=== PATIENT | female | born 1970 | race American Indian/Alaskan Native ===

== ENCOUNTER 2017-11-20 10:45 | Emergency (ER) | payer SELFPAY ==
[2017-11-20 11:03] VITALS: BP 127/72
--- NOTE | 2017-11-20 11:49 | Emergency Department Report ---
ED Lower Extremity HPI - General Chief Complaint: Pain General Stated Complaint: r knee pain Time Seen by Provider: 11/20/17 11:45 Source: patient Mode of arrival: Ambulatory Limitations: No Limitations - History of Present Illness MD Complaint: knee injury -: Gradual Injury: Knee: Right Type of Injury: unknown Place: home Severity: moderate Improves With: NSAID Worsens With: movement Context: fall, other (but several months before the pain) Treatments Prior to Arrival: NSAIDS - Related Data Previous Rx's Medication Instructions Recorded Last Taken Type Ibuprofen [Motrin] 400 mg PO Q12H PRN #20 tablet 11/20/17 Unknown Rx ED Review of Systems ROS: Stated complaint: VERY BAD/LEG PAIN Other details as noted in HPI Comment: All other systems reviewed and negative Constitutional: no symptoms reported Respiratory: no symptoms reported Endocrine: no symptoms reported Musculoskeletal: other (r knee pain) ED Past Medical Hx - Past Medical History Previous Medical History?: No - Surgical History Past Surgical History?: Yes Additional Surgical History: gallstones 2011 - Family History Family history: no significant - Social History Smoking Status: Current Every Day Smoker Substance Use Type: None - Medications Home Medications: Home Medications Medication Instructions Recorded Confirmed Last Taken Type Ibuprofen [Motrin] 400 mg PO Q12H PRN #20 tablet 11/20/17 Unknown Rx ED Physical Exam - General Limitations: No Limitations General appearance: alert, in no apparent distress - Head Head exam: Present: atraumatic - Eye Eye exam: Present: normal appearance, PERRL - ENT ENT exam: Present: normal exam, normal orophraynx - Neck Neck exam: Present: normal inspection - Respiratory Respiratory exam: Present: normal lung sounds bilaterally - Cardiovascular Cardiovascular Exam: Present: regular rate - GI/Abdominal GI/Abdominal exam: Present: soft - Expanded Lower Extremity Exam Right Knee exam: Present: full ROM (but w pain), swelling (mild), full knee extension (w pain). Absent: tenderness, abrasion, laceration, ecchymosis, deformity, crepidus, dislocation, erythema, effusion, posterior draw sign, pain/laxity with valgus, pain/laxity with varus Lower Leg exam: Absent: tenderness, palpable cord, Zane's sign Ankle exam: Present: normal inspection Neuro vascular tendon exam: Present: no vascular compromise. Absent: abnormal cap refill Gait: Positive: observed and normal - Back Exam Back exam: Present: normal inspection - Neurological Exam Neurological exam: Present: alert, altered, oriented X3 - Psychiatric Psychiatric exam: Present: normal affect, normal mood ED Course Vital Signs 11/20/17 10:58 Temperature 98.0 F Respiratory 18 Rate Blood Pressure 127/72 O2 Sat by Pulse 96 Oximetry - Reevaluation(s) Reevaluation #1: 11/20/17 12:50 exam wo crepitus or any line or point tenderness of knee no effusion no popl cyst no laxity slightly swollen compared to left ambulatory had fallen 1 m prior to start of the pain pain is sharp and feels like something is pulling. no homans no calf swelling plus 2 dp otherwise healthy ED Lower Extremity MDM - Radiology Data Radiology results: report reviewed, image reviewed - Differential Diagnosis knee injury from fall 1 m prior to the pain or arthritis Critical care attestation.: If time is entered above; I have spent that time in minutes in the direct care of this critically ill patient, excluding procedure time. ED Disposition Clinical Impression: Knee pain, Arthritis Disposition: - TO HOME OR SELFCARE Is pt being admited?: No Does the pt Need Aspirin: No Condition: Good Instructions: Arthralgia (ED) Prescriptions: Ibuprofen [Motrin] 400 mg PO Q12H PRN #20 tablet PRN Reason: Pain, Mild (1-3) Referrals: PRIMARY CARE, [Primary Care Provider] - 3-5 Days Time of Disposition: 12:53
--- NOTE | 2017-11-20 12:52 | XRay Report ---
FINAL REPORT EXAM: XR KNEE 3V RT HISTORY: knee pain TECHNIQUE: 3 views of the right knee PRIORS: None. 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 Tricompartment degenerative articular surface irregularity. No definite joint space narrowing. No evidence of joint effusion, acute fracture, or dislocation. IMPRESSION: No acute skeletal pathology Degenerative change
== END 2017-11-20 13:54 | disposition home or self-care (01) ==
LOC: ED 10:45
DX: M17.11 Unilateral primary osteoarthritis, right knee (principal); F17.200 Nicotine dependence, unspecified, uncomplicated
CPT/HCPCS: 99283